=== PATIENT | female | born 1990 | race Caucasian/White ===

== ENCOUNTER 2017-03-20 07:52 | Emergency (ER) | payer OTHER ==
[~2017-03-20] VITALS: Ht 157.5 cm; Wt 68.0 kg
[~2017-03-20 07:52] MED LIST: ACET500C5 PO; BISM262O23 PO; ZOF8 PO
[2017-03-20 07:55] VITALS: Ht 157.5 cm; Wt 68.0 kg
[2017-03-20] MEDS ORDERED: BEN25 PO (08:18)
[2017-03-20] MEDS ORDERED: PRED20TA PO (08:19)
[2017-03-20] MEDS ORDERED: CETI10CA PO (08:20)
--- NOTE | 2017-03-20 08:27 | ERD ---
ER Documentation Chief Complaint Date/Time DATE: 03/20/17 TIME: 08:21 Chief Complaint candace eye itching, slight swelling possibleallergic reaction to hair products HPI Patient is a 26-year-old female who presents to the emergency department with bilateral eyelid itching and swelling. Patient states last night she accidentally put her hair product around her eyes. Patient denies gaining this product into her eyes. Patient states she confused it with her eye cream. Patient put product around her eyelids. Patient states throughout the night and this morning she is having bilateral eyelid itching and some burning. Patient reports taking Benadryl. Patient denies any visual changes or excessive tearing. Patient denies any fevers, chills, nausea, vomiting, loss consciousness. Patient denies contact lens use. ROS All systems reviewed and are negative except as per history of present illness. Medications Home Meds Active Scripts Cetirizine Hcl* (Zyrtec*) 10 Mg Capsule, 10 MG PO DAILY, #10 TAB.CHEW Prov:YANET HYMAN PA-C 03/20/17 Prednisone* (Prednisone*) 20 Mg Tab, 40 MG PO DAILY for 5 Days, TAB Prov:YANET HYMAN PA-C 03/20/17 Diphenhydramine Hcl* (Benadryl*) 25 Mg Cap, 25 MG PO Q6, #30 CAP Prov:YANET HYMAN PA-C 03/20/17 Bismuth Subsalicylate* (Pepto-Bismol*) 262 Mg/15 Ml Oral.susp, 15 ML PO Q3H Y for DIARRHEA for 5 Days, ML Prov:JACOB DAVALOS MD 02/20/16 Acetaminophen* (Tylophen*) 500 Mg Capsule, 1 CAP PO Q6H Y for PAIN AND OR ELEVATED TEMP, #14 CAP Prov:JACOB DAVALOS MD 02/20/16 Ondansetron Hcl* (Zofran* ODT) 8 mg -ODT Tab.disper, 8 MG PO Q6 Y for NAUSEA AND /OR VOMITING, #8 TAB Prov:JACOB DAVALOS MD 02/20/16 Allergies Allergies: Coded Allergies: No Known Allergy (Verified , 01/21/15) PMhx/Soc History of Surgery: Yes (appendectomy) Anesthesia Reaction: No Hx Neurological Disorder: No Hx Respiratory Disorders: No Hx Cardiac Disorders: No Hx Psychiatric Problems: No Hx Miscellaneous Medical Probl: No Hx Alcohol Use: No Hx Substance Use: No Hx Tobacco Use: No FmHx Family History: No diabetes Physical Exam Vitals Vital Signs Date Time Temp Pulse Resp B/P Pulse Ox O2 Delivery O2 Flow Rate FiO2 03/20/17 07:55 98.1 61 18 112/61 99 Physical Exam GENERAL: Well-developed, well-nourished female. Appears in no acute distress. HEAD: Normocephalic, atraumatic. EYES: Pupils are equally reactive bilaterally. EOMs grossly intact. No conjunctival erythema or chemosis. No proptosis bilaterally. Anterior chambers clear. No hypopion. Upper eyelid slightly erythematous and swollen. Visual acuity w/ Snellen eye chart: L 20/25, R 20/15, B 20/15 ENT: Moist mucous membranes. No uvula deviation. No kissing tonsils. NECK: Supple. No meningismus. Normal range of motion of the neck. LUNG: Clear to auscultation bilaterally. No rhonchi, wheezing, rales or coarse breath sounds. HEART: Regular rate and rhythm. No murmurs, rubs or gallops. EXTREMITIES: Equal pulses bilaterally. No peripheral clubbing, cyanosis or edema. No unilateral leg swelling. NEUROLOGIC: Alert and oriented. Moving all four extremities without any difficulty. Normal speech. Steady gait. SKIN: Normal color. Warm and dry. No rashes or lesions. Procedures/MDM MEDICAL DECISION MAKING: This is a 26-year-old female who presents with bilateral upper eyelid swelling and itching after accidentally putting a hair product on her eyelids last night. Patient denies any visual changes. Patient denies any fevers. Vital signs were reviewed. Patient was afebrile. Patients vision was grossly intact. Given these findings, the patient's presentation is most consistent with eyelid irritation secondary allergic reaction. I have a much lower clinical concern for bacterial conjunctivitis, viral conjunctivitis, allergic conjunctivitis, corneal abrasion, corneal ulcer, retained eye foreign body, glaucoma, orbital cellulitis, hordeolum, dacrocystitis. PRESCRIPTIONS: Benadryl, Prednisone, Zyrtec DISCHARGE: At this time, patient is stable for discharge and outpatient management. Supportive measures were discussed with patient including cool compresses. Patient advised not to wear contact lenses or eye makeup. I have instructed the patient to follow-up with his/her primary care physician in 1-2 days. I have discussed with the patient the possibility of needing to see an branch operations specialist for further workup if symptoms persist. I have instructed the patient to promptly return to the ER for any new or worsening symptoms including increased pain, fever, swelling, redness, warmth, nausea, vomiting, . The patient and/or family expressed understanding of and agreement with this plan. All questions were answered. Home care instructions were provided. Departure Diagnosis: Primary Impression: Allergic reaction Encounter type: initial encounter Qualified Code: T78.40XA - Allergic reaction, initial encounter Condition: Stable Patient Instructions: First Aid: Allergic Reactions Additional Instructions: Call your primary care doctor/[facility] TOM[facility]ROW for an appointment during the next 1-2 days.See the doctor sooner or return here if your condition worsens before your appointment time. Use cool compresses to bilateral eyelids three times per day. YANET HYMAN PA-C Mar 20, 2017 08:27
== END 2017-03-20 08:52 | disposition home or self-care (01) ==
LOC: FTE 07:52
DX: H57.8 Other specified disorders of eye and adnexa (principal)
CPT/HCPCS: 99283

== ENCOUNTER 2017-06-06 18:41 | Emergency (ER) | payer OTHER ==
[~2017-06-06] VITALS: Ht 154.9 cm; Wt 61.5 kg
[~2017-06-06 18:41] MED LIST changes: +BEN25 PO; +CETI10CA PO; +PRED20TA PO
[2017-06-06 18:44] VITALS: Ht 154.9 cm; Wt 61.5 kg
[2017-06-06 20:29] LABS: URINE BLOOD (Dip) POC Negative (NEGATIVE)
[2017-06-06 20:39] LABS: BASOPHILS % 0.3 % (0.0-2.0); EOSINOPHILS # 0.2 10^3/ul (0.0-0.5); EOSINOPHILS % 2.3 % (0.0-7.0); HEMATOCRIT 43.2 % (37.0-47.0); HEMOGLOBIN 13.9 g/dl (12.0-16.0); LYMPHOCYTES # 3.7 10^3/ul (0.8-2.9); LYMPHOCYTES % 37.8 % (15.0-51.0); MEAN CORPUSCULAR HEMOGLOBIN 28.5 pg (29.0-33.0); MEAN CORPUSCULAR HGB CONC 32.2 g/dl (32.0-37.0); MEAN CORPUSCULAR VOLUME 88.5 fl (82.0-101.0); MEAN PLATELET VOLUME 12.3 fl (7.4-10.4); MONOCYTE # 0.6 10^3/ul (0.3-0.9); MONOCYTES % 6.3 % (0.0-11.0); NEUTROPHIL # 5.2 10^3/ul (1.6-7.5); PLATELET COUNT 222 10^3/UL (140-415); RED BLOOD COUNT 4.88 10^6/ul (4.20-5.40); RED CELL DISTRIBUTION WIDTH 13.2 % (11.5-14.5); WHITE BLOOD COUNT 9.8 10^3/ul (4.8-10.8)
--- NOTE | 2017-06-06 20:50 | ERD ---
ER Documentation Chief Complaint Date/Time DATE: 06/06/17 TIME: 20:47 Chief Complaint c/o left sided breast pain x 2 days. (+) bump. (-) drainage. HPI This is a 26-year-old female who presents the emergency department today complaining of left breast pain for the past several years but more pain for the last couple of days. States that she feels a lump. States that she has told her primary care doctor about it but he has not done anything for her. States that she also has been feeling dizzy for a week. Denies any fevers or chills, dysuria. States her last menstrual period was 1 year ago and her period is irregular. Denies breast-feeding. States she has an IUD. ROS All systems reviewed and are negative except as per history of present illness. Medications Home Meds Active Scripts Acetaminophen* (Tylophen*) 500 Mg Capsule, 1 CAP PO Q6H Y for PAIN AND OR ELEVATED TEMP, #30 CAP Prov:PIEDAD HESS PA-C 06/06/17 Cetirizine Hcl* (Zyrtec*) 10 Mg Capsule, 10 MG PO DAILY, #10 TAB.CHEW Prov:YANET HYMAN PA-C 03/20/17 Prednisone* (Prednisone*) 20 Mg Tab, 40 MG PO DAILY for 5 Days, TAB Prov:YANET HYMAN PA-C 03/20/17 Diphenhydramine Hcl* (Benadryl*) 25 Mg Cap, 25 MG PO Q6, #30 CAP Prov:YANET HYMAN PA-C 03/20/17 Bismuth Subsalicylate* (Pepto-Bismol*) 262 Mg/15 Ml Oral.susp, 15 ML PO Q3H Y for DIARRHEA for 5 Days, ML Prov:JACOB SHAH MD 02/20/16 Acetaminophen* (Tylophen*) 500 Mg Capsule, 1 CAP PO Q6H Y for PAIN AND OR ELEVATED TEMP, #14 CAP Prov:JACOB SHAH MD 02/20/16 Ondansetron Hcl* (Zofran* ODT) 8 mg -ODT Tab.disper, 8 MG PO Q6 Y for NAUSEA AND /OR VOMITING, #8 TAB Prov:JACOB SHAH MD 02/20/16 Allergies Allergies: Coded Allergies: naproxen (Unverified Allergy, Unknown, Hives, 06/06/17) PMhx/Soc Medical and Surgical Hx: pt denies Medical Hx History of Surgery: Yes (appendectomy) Anesthesia Reaction: No Hx Neurological Disorder: No Hx Respiratory Disorders: No Hx Cardiac Disorders: No Hx Psychiatric Problems: No Hx Miscellaneous Medical Probl: No Hx Alcohol Use: No Hx Substance Use: No Hx Tobacco Use: No Smoking Status: Never smoker Physical Exam Vitals Vital Signs Date Time Temp Pulse Resp B/P Pulse Ox O2 Delivery O2 Flow Rate FiO2 06/06/17 18:44 98.7 61 18 120/69 99 Physical Exam Const: NAD Head: Atraumatic Eyes: Normal Conjunctiva ENT: Normal External Ears, Nose and Mouth. Neck: Full range of motion..~ No meningismus. Resp: Clear to auscultation bilaterally Breast left breast with no obvious deformity. No effusion. No ecchymosis. No skin dimpling or nipple discharge. Tenderness to palpation outer quadrant. Cardio: Regular rate and rhythm, no murmurs Abd: Soft, non tender, non distended. Normal bowel sounds Skin: No petechiae or rashes Back: No midline or flank tenderness Ext: No cyanosis, or edema Neur: Awake and alert Psych: Normal Mood and Affect Result Diagram: 06/06/17201906/06/172019 Results 24 hrs Laboratory Tests Test 06/06/17 20:20 06/06/17 20:35 White Blood Count 9.810^3/ul Red Blood Count 4.8810^6/ul Hemoglobin 13.9g/dl Hematocrit 43.2% Mean Corpuscular Volume 88.5fl Mean Corpuscular Hemoglobin 28.5pg Mean Corpuscular Hemoglobin Concent 32.2g/dl Red Cell Distribution Width 13.2% Platelet Count 03375^3/UL Mean Platelet Volume 12.3fl Neutrophils % 53.0% Lymphocytes % 37.8% Monocytes % 6.3% Eosinophils % 2.3% Basophils % 0.3% Nucleated Red Blood Cells % 0.0/100WBC Neutrophils # 5.210^3/ul Lymphocytes # 3.710^3/ul Monocytes # 0.610^3/ul Eosinophils # 0.210^3/ul Basophils # 0.010^3/ul Nucleated Red Blood Cells # 0.010^3/ul Sodium Level 140mmol/L Potassium Level 4.0mmol/L Chloride Level 104mmol/L Carbon Dioxide Level 29mmol/L Anion Gap 11 Blood Urea Nitrogen 17mg/dl Creatinine 0.58mg/dl Glucose Level 98mg/dl Calcium Level 9.7mg/dl Total Bilirubin 0.4mg/dl Direct Bilirubin 0.00mg/dl Indirect Bilirubin 0.4mg/dl Aspartate Amino Transf (AST/SGOT) 23IU/L Alanine Aminotransferase (ALT/SGPT) 21IU/L Alkaline Phosphatase 82IU/L Total Protein 8.4g/dl Albumin 4.7g/dl Globulin 3.70g/dl Albumin/Globulin Ratio 1.27 Bedside Urine pH (LAB) 7.5 Bedside Urine Protein (LAB) Negative Bedside Urine Glucose (UA) Negative Bedside Urine Ketones (LAB) Negative Bedside Urine Blood Negative Bedside Urine Nitrite (LAB) Negative Bedside Urine Leukocyte Esterase (L Negative DIAGNOSTIC IMAGING REPORT Patient: MICHELLE GARNER : 1990 Age: 26 Sex: F MR #: [id number] [facility] #: [id number] DOS: 06/06/17 0000 Ordering MD: PIEDAD HESS PA-C Location: [facility] Room/Bed: PROCEDURE: Left breast ultrasound. CLINICAL INDICATION: Intermittent left breast pain and palpable abnormality. Possible abscess. TECHNIQUE: Ultrasound of the whole left breast was performed with a high frequency linear transducer. The images were reviewed on a high-resolution PACS monitor. COMPARISON: None available. FINDINGS: There is a questionable 1 x 0.9 cm oval, hypoechoic, circumscribed lesion at the 1-2 o'clock position 1 cm from the nipple, which may be artifactual in nature. There is an oval, circumscribed, hypoechoic, avascular lesion measuring 1.6 x 0.8 cm in the periareolar region in the superficial tissues. The axilla is unremarkable. IMPRESSION: 1. 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 2. Questionable 1 cm lesion at the 1-2 o'clock position 1 cm from the nipple, which may be artifactual in nature. BIRADS 2: Benign. Follow-up any palpable abnormality as clinically warranted. Otherwise, the patient can begin routine annual screening mammography at age 41. A reminder letter will be sent to the patient for their next mammogram through our data base. RPTAT: HLBP .Christian Watkins MD, MD Date Time Electronically viewed and signed by .Christian Watkins MD, MD on 06/06/2017 21:50 .P/ CC: PIEDAD HESS PA-C Procedures/MDM This is a 26-year-old female who presents to the emergency department today with multiple complaints specifically dizziness and left breast pain. Patient complains I did laboratory workup, EKG and breast ultrasound Laboratory workup no elevated white blood cell count. She is not anemic. Platelets are within normal limits. Electrodes are within normal limits. Glucose is normal limits. Liver enzymes are within normal limits. UA is negative for infection. urine test negative. breast ultrasound benign-appearing lesion in the perihilar region measuring 1.6 cm likely a fibroadenoma. There is a questionable one similar lesion at the 1 to 2 o'clock position 1 cm from the nipple which may be artifactual in nature. Patient is afebrile and otherwise well-appearing. There is no evidence to suggest abscess or mastitis. I have explained the results of the patient. She may follow-up with an CLINICAL ANALYST. EKG read and interpreted by Dr. Shah [address] elevation. No QT prolongation. Normal sinus rhythm. Low suspicion for acute VT, PE, pericarditis, cardiac pathology as cause of dizziness. Patient has dizziness and breast pain of uncertain etiology. Low suspicion for sepsis, severe acute bacterial infection. At this time the patient is stable for discharge and outpatient management. Patient should follow up with their PCP in the next 1-2 days. They may return to the emergency department sooner for any persistent or worsening of symptoms. Patient understood and agreed with the plan. Departure Diagnosis: Primary Impression: Breast pain Additional Impression: Dizziness Condition: Fair PIEDAD HESS PA-C Jun 06, 2017 20:50
[2017-06-06 21:00] LABS: ALBUMIN 4.7 g/dl (3.3-4.9); ALBUMIN/GLOBULIN RATIO 1.27; BILIRUBIN,INDIRECT 0.4 mg/dl (0-1.1); BILIRUBIN,TOTAL 0.4 mg/dl (0.2-1.3); CALCIUM 9.7 mg/dl (8.4-10.2); CREATININE 0.58 mg/dl (0.44-1.00); TOTAL PROTEIN 8.4 g/dl (6.1-8.1)
--- NOTE | 2017-06-06 21:50 | RADRPT ---
PROCEDURE: Left breast ultrasound. CLINICAL INDICATION: Intermittent left breast pain and palpable abnormality. Possible abscess. TECHNIQUE: Ultrasound of the whole left breast was performed with a high frequency linear transduce r. The images were reviewed on a high-resolution PACS monitor. COMPARISON: None available. FINDINGS: There is a questionable 1 x 0.9 cm oval, hypoechoic, circumscribed lesion at the 1-2 o'cl ock position 1 cm from the nipple, which may be artifactual in nature. There is an oval, circumscrib ed, hypoechoic, avascular lesion measuring 1.6 x 0.8 cm in the periareolar region in the superficial tissues. The axilla is unremarkable. IMPRESSION: 1. 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 2. Questionable 1 cm lesion at the 1-2 o'clock position 1 cm from the nipple, which may be artifact ual in nature. BIRADS 2: Benign. Follow-up any palpable abnormality as clinically warranted. Otherwise, the patien t can begin routine annual screening mammography at age 40. A reminder letter will be sent to the patient for their next mammogram through our data base. RPTAT: HLBP .Christian Watkins MD, Date Time Electronically viewed and signed by .Christian Watkins MD, MD on 06/06/2017 21:50 .P/
[2017-06-06] MEDS ORDERED: ACET500C5 PO (22:06)
== END 2017-06-06 22:35 | disposition home or self-care (01) ==
LOC: FTE 18:41
DX: N64.4 Mastodynia (principal); R42 Dizziness and giddiness
CPT/HCPCS: 36415; 76642; 80053; 81003; 85025; 93005; Z7502

== ENCOUNTER 2018-01-17 14:17 | Emergency (ER) | END 2018-01-17 15:20 | disposition home or self-care (01) ==

== ENCOUNTER 2018-02-27 20:21 | Emergency (ER) | END 2018-02-28 00:20 | disposition home or self-care (01) ==